=== PATIENT | female | born 1960 | race Caucasian/White ===

== ENCOUNTER → 2016-11-25 | Outpatient (CLI) | payer OTHER ==
--- NOTE | 2016-11-27 09:50 | Diagnostic Imaging Report ---
Bilateral screening mammogram 2D views with tomosynthesis The current study was also evaluated with a Computer Aided Detection (CAD) system. Indication: Screening. No current complaints stated on the questionnaire. COMPARISON: 06/06/15 FINDINGS: The breasts are composed of heterogeneously dense parenchyma which may decrease mammographic sensitivity. There is stable punctate benign-appearing calcifications seen in both breasts. No mass, architectural distortion or suspicious cluster of calcification is identified. Allowing for technique and positional differences, no suspicious change is seen. IMPRESSION: No significant change. ACR BI-RADS Category 2: Benign findings. Result letter will be mailed to the patient. Note: At least 10% of breast cancer is not imaged by mammography. Dictated by: Dictated on workstation # [id number]
== END ==
LOC: RAD 14:33
PROVIDERS: ATTEND Family Medicine
DX: Z12.31 Encounter for screening mammogram for malignant neoplasm of breast (principal)
CPT/HCPCS: 77067

== ENCOUNTER → 2017-05-01 | Outpatient (CLI) | payer OTHER ==
[2017-05-01 07:55] LABS: RED BLOOD COUNT 4.8 10^6/uL (4.35-5.85); RED CELL DISTRIBUTION WIDTH 13.2 % (10.0-14.5); WHITE BLOOD COUNT 9.7 10^3/uL (4.3-11.0)
[2017-05-01 08:15] LABS: ALANINE AMINOTRANSFERASE 25 U/L (0-55); ALBUMIN 4.2 GM/DL (3.2-4.5); ANION GAP 10 MMOL/L (5-14); ASPARTATE AMINO TRANSFERASE 17 U/L (5-34); BILIRUBIN,TOTAL 0.5 MG/DL (0.1-1.0); BLOOD UREA NITROGEN 17 MG/DL (7-18); BUN/CREATININE RATIO 23; CALCIUM 9.5 MG/DL (8.5-10.1); CARBON DIOXIDE 25 MMOL/L (21-32); CHLORIDE 107 MMOL/L (98-107); CHOLESTEROL 183 MG/DL (< 200); CREATININE SERUM 0.73 MG/DL (0.60-1.30); DIRECT LDL 120 MG/DL (1-129); GFR ESTIMATED > 60; GLUCOSE 100 MG/DL (70-105); POTASSIUM 4.1 MMOL/L (3.6-5.0); SODIUM 142 MMOL/L (135-145); TOTAL PROTEIN 7.9 GM/DL (6.4-8.2); TRIGLYCERIDES 154 MG/DL (<150); VLDL CHOLESTEROL 31 MG/DL (5-40)
[2017-05-01 08:35] LABS: THYROID STIMULATING HORMONE 1.66 UIU/ML (0.35-4.94)
== END ==
LOC: LAB 07:40
PROVIDERS: ATTEND Family Medicine
DX: Z00.00 Encounter for general adult medical examination without abnormal findings (principal)
CPT/HCPCS: 36415; 80053; 80061; 84443; 85027

== ENCOUNTER → 2018-04-20 | Outpatient (CLI) | payer OTHER ==
--- NOTE | 2018-04-20 20:20 | Diagnostic Imaging Report ---
INDICATION: Routine screening. Comparison is made with prior mammograms from 11/25/2016 and 06/06/2015. 2-D and 3-D bilateral screening mammography was performed with computer-aided detection (CAD) system. FINDINGS: Both breasts are heterogeneously dense, limiting the sensitivity of mammography. There are punctate benign-appearing calcifications in both breasts. A benign-appearing nodular density in the slightly outer right breast posterior depth appears stable over several years. Similar-appearing nodular density is noted in the posterior depth of the left breast just lateral to the nipple line on the CC view, not definitely seen on prior exams or at least slightly better seen on today's study. This too has fairly benign features, but additional views are recommended. This appears to be inferiorly located on the MLO view, tomographic image 31 of the MLO series. This may represent a small cyst or lymph node. No other abnormality is seen. IMPRESSION: Left breast density. Additional views are recommended for further evaluation. ACR BI-RADS Category 0: Incomplete. (Needs additional imaging evaluation). Result letter will be mailed to the patient. Note: At least 10% of breast cancer is not imaged by mammography. Dictated by: Dictated on workstation # [id number]
== END ==
LOC: RAD 14:22
PROVIDERS: ATTEND Family Medicine
DX: Z12.31 Encounter for screening mammogram for malignant neoplasm of breast (principal); R92.8 Other abnormal and inconclusive findings on diagnostic imaging of breast
CPT/HCPCS: 77067

== ENCOUNTER → 2018-04-22 | Outpatient (CLI) | payer OTHER ==
--- NOTE | 2018-04-22 21:16 | Diagnostic Imaging Report ---
INDICATION: Left breast density. Patient presents for additional views. Correlation is made with prior screening mammogram from 04/20/2018. Unilateral left 2-D and 3-D diagnostic mammography was performed with computer-aided detection (CAD) system. Images included spot compression CC and ML as well as conventional 90-degree lateral view. FINDINGS: There is a persistent slightly nodular density in the far posterior lower-outer left breast approximately 8 cm from the nipple. No other abnormality is seen. No suspicious calcifications are identified. IMPRESSION: Persistent nodular density lower-outer left breast posterior depth. Further evaluation with ultrasound is recommended. ACR BI-RADS Category 0: Incomplete. (Needs additional imaging evaluation). Result letter will be mailed to the patient. Note: At least 10% of breast cancer is not imaged by mammography. Dictated by: Dictated on workstation # [id number]
--- NOTE | 2018-04-22 21:20 | Diagnostic Imaging Report ---
INDICATION: Left breast density. Correlation is made with diagnostic mammogram earlier the same day and screening mammogram from 04/20/2018. FINDINGS: Directed sonographic interrogation of the lower-outer left breast was performed. There is a tiny circumscribed hypoechoic mass at the 03:30 location of the left breast approximately 5 cm from the nipple. This measures 6 mm x 4 mm x 3 mm. There appear to be posterior acoustic enhancement features that are suggestive of a small cyst. This likely accounts for the mammographic density. No other abnormality is seen. IMPRESSION: Findings suggestive of a small cyst at the 03:30 location of the left breast, likely accounting for the mammographic density. Even so, follow-up left mammogram and left breast ultrasound in six months is recommended to confirm stability. ACR BI-RADS Category 3: Probably benign findings. Dictated by: Dictated on workstation # [id number]
== END ==
LOC: RAD 08:07
PROVIDERS: ATTEND Family Medicine
DX: R92.2 Inconclusive mammogram (principal)
CPT/HCPCS: 76642

== ENCOUNTER → 2018-10-20 | Outpatient (CLI) | payer OTHER ==
--- NOTE | 2018-10-20 11:20 | Diagnostic Imaging Report ---
INDICATION: Six-month followup left breast nodule. COMPARISON: 04/20/2018. TECHNIQUE: Unilateral left 2D and 3D diagnostic mammography was performed with CAD. FINDINGS: The small nodular density in the lower outer left breast at posterior depth appears stable. No new mass is seen. No malignant appearing microcalcifications are seen. The left axilla is unremarkable. IMPRESSION: Stable left mammogram. Ultrasound will be performed today as well. ACR BI-RADS Category 0: Incomplete. (Needs additional imaging evaluation). Result letter will be mailed to the patient. Note: At least 10% of breast cancer is not imaged by mammography. Dictated by: Dictated on workstation # [id number]
--- NOTE | 2018-10-20 11:27 | Diagnostic Imaging Report ---
INDICATION: Six-month followup of a left breast cyst. COMPARISON: 04/22/2018. FINDINGS: The previously noted ovoid hypoechoic mass at the 3:30 location of the left breast 5 cm from the nipple is again noted measuring 5 mm x 3 mm x 4 mm compared with 6 mm x 4 mm x 3 mm on the prior exam. No internal vascularity is identified. This is most consistent with a small cyst. IMPRESSION: Stable left breast cyst at the 3:30 location when compared to the exam from 6 months earlier. An additional six-month followup is recommended to show continued stability. ACR BI-RADS Category 3: Probably benign findings. Result letter will be mailed to the patient. Note: At least 10% of breast cancer is not imaged by mammography. Dictated by: Dictated on workstation # [id number]
== END ==
LOC: RAD 08:08
PROVIDERS: ATTEND Family Medicine
DX: N60.02 Solitary cyst of left breast (principal); N63.20 Unspecified lump in the left breast, unspecified quadrant
CPT/HCPCS: 76642

== ENCOUNTER 2018-12-28 09:00 | Outpatient (CLI) | payer OTHER ==
[~2018-12-28] VITALS: Ht 170.2 cm; Wt 103.4 kg
[~2018-12-28 09:00] MED LIST: MULT-178 PO; OMG1KC PO; SIMV10TA PO
== END 2018-12-28 10:28 | disposition home or self-care (01) ==
LOC: PREOP 09:00
PROVIDERS: ATTEND Surgery
DX: Z01.818 Encounter for other preprocedural examination (principal)

== ENCOUNTER 2018-12-29 08:49 | Day surgery (SDC) | payer OTHER ==
[~2018-12-29] VITALS: Ht 170.2 cm; Wt 103.4 kg
[2018-12-29] VITALS (19 sets, daily range): BP systolic 48–157; BP diastolic 55–86
[2018-12-29] MEDS ORDERED: NS IV 500 ML 500 ML ONE (09:19)
[2018-12-29] MEDS ORDERED: NS IV 500 ML 500 ML IV PRN (09:39)
[2018-12-29] MEDS ORDERED: HURRICAINE EXT TUBE (BENZOCAINE) XX PRN (09:45)
[2018-12-29] MEDS ORDERED: MIDAZOLAM 2 MG/2 ML (VERSED) VIAL IVP ONE (09:45)
[2018-12-29] MEDS ORDERED: LIDOCAINE JELLY 2% 6 ML SYRINGE MM PRN (09:45)
[2018-12-29] MEDS ORDERED: fentaNYL INJECTION 100 MCG/2 ML AMP ONE ×2 (09:59)
[2018-12-29] MEDS ORDERED: LIDOCAINE JELLY 2% 6 ML SYRINGE ONE (09:59)
[2018-12-29] MEDS ORDERED: MIDAZOLAM 2 MG/2 ML (VERSED) VIAL ONE ×5 (09:59→10:32)
[2018-12-29] MEDS ORDERED: HURRICAINE EXT TUBE (BENZOCAINE) ONE (10:09)
--- NOTE | 2018-12-29 10:14 | Conscious Sedation/ASA ---
Conscious Sedation Pre-Proced Time 09:30 ASA Score 2 For ASA 3 and 4: Consider anesthesia and medical clearance. Also, for patients with a history of failed moderate sedation consider anesthesia. Airway Lungs Heart ASA score ASA 1: a normal healthy patient ASA 2: a patient with a mild systemic disease (mid diabetes, controlled hypertension, obesity ASA 3: a patient with a severe systemic disease that limits activity (angina, COPD, prior Myocardial infarction) ASA 4: a patient with an incapacitating disease that is a constant threat to life (CHF, renal failure) ASA 5: a moribund patient not expected to survive 24 hrs. (ruptured aneurysm) ASA 6: a declared brain- patient whose organs are being harvested. For emergent operations, add the letter E after the classification Mallampati Classification Grade 2 Sedation Plan Analgesia, Amnesia, Plan communicated to team members, Discussed options with patient/fam, Discussed risks with patient/fam The patient is an appropriate candidate to undergo the planned procedure, sedation, and anesthesia. The patient immediately re-assessed prior to indication. HERMAN CHICAS MD Dec 29, 2018 10:14
[2018-12-29] MEDS ORDERED: ONDANSETRON 4 MG/2 ML (SDV) Z0FRAN IVP PRN (10:15)
[2018-12-29] MEDS ORDERED: ACETAMINOPHEN 325 MG TABLET PO PRN (10:15)
[2018-12-29] MEDS ORDERED: HYDROcodone/APAP 5 MG/325 MG (LORTAB) TAB PO PRN (10:15)
[2018-12-29] MEDS ORDERED: morphine INJ 10 MG/ML 1ML (SYR OR VIAL) IVP PRN ×2 (10:15)
--- NOTE | 2018-12-29 10:15 | Progress Note-Pre Operative ---
Pre-Operative Progress Note H&P Reviewed The H&P was reviewed, patient examined and no changes noted. Date Seen by Provider: Dec 29, 2018 Time Seen by Provider: :30 Date H&P Reviewed: Dec 29, 2018 Time H&P Reviewed: :30 Pre-Operative Diagnosis: GERD, screening o HERMAN CHICAS MD Dec 29, 2018 10:15
--- NOTE | 2018-12-29 10:16 | Discharge Inst-Surgical ---
D/C Lap Instructions-JUAN FRANCISCO Follow Up Activity as tolerated High Fiber Diet 25g or more per day Avoid Alcohol, Caffeine, Spicy [place] and Acid foods. Drink 64 fluid oz or more of fluids per day. Symptoms to Report: Fever over 101 degree F, Nausea/Vomiting If any problems/questions: Contact your physician or go to Emergency Room HERMAN CHICAS MD Dec 29, 2018 10:16
--- NOTE | 2018-12-29 11:07 | Progress Note-Post Operative ---
Post-Operative Progess Note Surgeon (s)/Nicker (s) Surgeon HERMAN CHICAS MD Nicker: none Pre-Operative Diagnosis GERD, screening colo Post-Operative Diagnosis reflux esophagitis(stage 2), small HH(1cm), mild gastritis. mild chronic stage 1 ext and int hemorrhoids, moderate sigmoid diverticulosis. Procedure & Operative Findings Date of Procedure 12/29/18 Procedure Performed/Findings EGD with bx. Colonoscopy. Anesthesia Type cs Estimated Blood Loss Estimated blood loss (mL): minimal Specimens/Packing Specimens Removed ge jxn, antrum HERMAN CHICAS MD Dec 29, 2018 11:07
[2018-12-29] MEDS: fentaNYL INJECTION 100 MCG/2 ML AMP IVP ONE ×2 (11:08→11:30)
[2018-12-29] MEDS ORDERED: fentaNYL INJECTION 100 MCG/2 ML AMP IVP ONE (12:00)
--- NOTE | 2018-12-29 15:31 | OPERATIVE REPORT ---
DATE OF SERVICE: 12/29/2018 ATTENDING PRIMARY CARE PHYSICIAN: Kaveh Stacy DO. PREOPERATIVE DIAGNOSES: Gastroesophageal reflux disease, screening colonoscopy. POSTOPERATIVE DIAGNOSES: Reflux esophagitis stage II, small hiatal hernia 1 cm in size, mild gastritis, mild chronic stage I external and internal hemorrhoids, moderate sigmoid diverticulosis. PROCEDURE: Esophagogastroduodenoscopy with biopsy, colonoscopy. SURGEON: Herman Chicas MD ANESTHESIA: Conscious sedation. ESTIMATED BLOOD LOSS: Minimal. FINDINGS: Reflux esophagitis stage II, small hiatal hernia 1 cm in size, mild gastritis, mild chronic stage I external and internal hemorrhoids, moderate sigmoid diverticulosis. DISPOSITION: The patient tolerated the procedure well. INDICATIONS: The patient is a 58-year-old female referred over to us for screening colonoscopy. She did do the Cologuard, which was positive. She has not had a colonoscopy up to this point in her life. She states that she is otherwise doing well, does not report any major issues with diarrhea nor constipation as well as no red blood per rectum nor any dark tarry stools. She also does not have any family history of colon cancer. She does report that she has had some reflux in the past, which has slightly worsened over time as well. She does take Prilosec 20 mg daily on p.r.n. basis. DESCRIPTION OF PROCEDURE: The patient was brought to the endoscopy suite, laid in left lateral decubitus position. After adequate IV pain and stated medications and conscious sedation, anesthesia, the mouthpiece was applied. The endoscope was placed in the mouth, visualizing the pharynx and hypopharyngeal region. Vocal cords, epiglottis and vallecula identified and appeared to be normal. Endoscope was then gently intubated into the esophageal opening and esophagus insufflated. The endoscope was then intubated into the esophagus and the endoscope advanced to the first, second and third portions of the esophagus at the level of the GE junction. A reflux esophagitis stage II identified. There were no ulcers or strictures identified in this region and a biopsy was taken with forceps with visualization of good hemostasis. The endoscope was then advanced in the stomach and endoscope retroflexed, visualizing a small hiatal hernia 1 cm in size. There was mild gastritis. No formal ulcerations, polyps or any neoplasms. A biopsy was taken of the antrum to rule out H. pylori with visualization of good hemostasis. The endoscope was then advanced to the pylorus and the first and second portion of the duodenum, which appeared normal with no distal obstructions. The endoscope was slowly withdrawn while taking a second look and suctioning residual air with no additional findings. Under the same anesthesia, we then proceeded with the colonoscopy portion of procedure. Mild chronic stage I external and internal hemorrhoids were identified, which were not actively edematous nor inflamed and no bleeding. Normal sphincter tone was felt and there were no palpable masses. The endoscope was then intubated to the anus and rectum gently insufflated. The endoscope was then advanced to the valves of [place] of rectum with no polyps or any neoplasms identified. Through the sigmoid colon, a moderate sigmoid diverticulosis was identified. There were no mucosal inflammatory changes to indicate any active diverticulitis. The endoscope was then advanced through the remainder of the descending, transverse and ascending colon to the cecum. These segments were normal. There were no polyps or any neoplasms identified. The endoscope was then slowly withdrawn while taking a second look and suctioning of residual air with no additional findings. The patient tolerated the procedure well. We will recommend the necessary lifestyle and diet accommodation including small and more frequent meals, avoidance of eating at night as well as head elevation while lying supine. She also needs to avoid caffeinated beverages, spicy, greasy and acidic foods. We will also recommend a high fiber diet with at least 25 grams of fiber daily as well as significant amounts of water to promote soft stools on a daily basis and to prevent any episodes of constipation. No polyps were identified and she does not have a family history of colon cancer and she does not need another colonoscopy for another 10 years; however, sooner if she becomes symptomatic. Job ID: [id number] DocumentID: [id number] Dictated Date: 12/29/2018 11:03:13 [employer] Date: 12/29/2018 15:29:20 Dictated By: HERMAN CHICAS MD [facility]
== END 2018-12-29 12:15 | disposition home or self-care (01) ==
LOC: ENDO 08:49
PROVIDERS: ATTEND Surgery
DX: Z12.11 Encounter for screening for malignant neoplasm of colon (principal); K21.0 Gastro-esophageal reflux disease with esophagitis; K29.70 Gastritis, unspecified, without bleeding; K22.70 Barrett's esophagus without dysplasia; K44.9 Diaphragmatic hernia without obstruction or gangrene; K64.0 First degree hemorrhoids; K64.8 Other hemorrhoids; K57.30 Diverticulosis of large intestine without perforation or abscess without bleeding; E78.00 Pure hypercholesterolemia, unspecified; M19.90 Unspecified osteoarthritis, unspecified site; Z90.89 Acquired absence of other organs; Z98.41 Cataract extraction status, right eye; Z98.42 Cataract extraction status, left eye; Z79.899 Other long term (current) drug therapy; Z82.49 Family history of ischemic heart disease and other diseases of the circulatory system
CPT/HCPCS: 88305

== ENCOUNTER → 2019-04-28 | Outpatient (CLI) | payer OTHER ==
--- NOTE | 2019-04-28 18:53 | Diagnostic Imaging Report ---
INDICATION: Abnormal mammogram. EXAMINATION: Diagnostic left mammogram, limited, with CAD. The current study was also evaluated with a Computer Aided Detection (CAD) system. FINDINGS: The previous left breast ultrasound exam performed on 10/20/2018 suggested a small, 5 mm, cyst in the 3:30 position of the left breast, roughly 5 cm from the nipple. That finding cannot be identified on this exam. The diagnostic mammogram performed earlier today noted a small area of increased density in the midportion of the retroareolar region of the right breast. On this exam, there is now a 3 x 4 mm avascular hypoechoic area in this region. I suspect that this is a small cyst. I am not certain this corresponds to the density seen on the mammogram. The mammographic finding is most likely due to superimposition of the fibroglandular tissue and there is no solid mass evident on this exam to suggest malignancy. Even so, it may prove worthwhile to have a short-term (6 month) follow-up mammogram and ultrasound exam of the left breast for continued evaluation. IMPRESSION: There is no evidence of malignancy. Recommendations as above. ACR BI-RADS Category 3: Probably benign findings. Result letter will be mailed to the patient. Note: At least 10% of breast cancer is not imaged by mammography. Dictated by: Dictated on workstation # [id number]
--- NOTE | 2019-04-29 07:17 | Diagnostic Imaging Report ---
Unilateral diagnostic left mammogram. Indication: Followup exam The previous mammogram of 10/20/2018 noted a small nodular density in the lower outer aspect of the left breast. The ultrasound exam indicated that there was a small cyst in this region. On this exam the density in the lateral aspect of the left breast seen previously is not as conspicuous. There is a vague area of slightly increased density in the left retroareolar region on the CC view. There is no corresponding otherwise seen on the MLO view and this finding is not as conspicuous on the compression view in the CC projection or on the roll views. I suspect that this is secondary to superimposition but I would recommend that this area be further evaluated by ultrasound. The right breast is unchanged. The fibroglandular tissue in both breasts is heterogeneously dense and this does limit the sensitivity of this exam. Impression: 1. The small density in the lateral aspect of the left breast seen previously is no longer evident. However there is a new area of slight increased density in the retroareolar region of the left breast. This finding is most likely due to fibroglandular tissue but ultrasound would be recommended for further study. 2. There is no evidence for malignancy involving the right breast. ACR BI-RADS Category 0: Incomplete. (Needs additional imaging evaluation). Result letter will be mailed to the patient. Note: At least 10% of breast cancer is not imaged by mammography. Dictated by: Dictated on workstation # [id number]
== END ==
LOC: RAD 12:34
PROVIDERS: ATTEND Family Medicine
DX: R92.8 Other abnormal and inconclusive findings on diagnostic imaging of breast (principal)
CPT/HCPCS: 76642; 77066

== ENCOUNTER → 2019-04-29 | Outpatient (CLI) | payer OTHER ==
[2019-04-29 07:28] LABS: BASOPHILS # (AUTO) 0.1 10^3/uL (0.0-0.1); BASOPHILS % (AUTO) 1 % (0-10); EOSINOPHILS # (AUTO) 0.3 10^3/uL (0.0-0.3); EOSINOPHILS % (AUTO) 3 % (0-10); HEMATOCRIT 41 % (35-52); HEMOGLOBIN 13.7 G/DL (11.5-16.0); LYMPHOCYTES # (AUTO) 3.3 X 10^3 (1.0-4.0); LYMPHOCYTES % (AUTO) 36 % (12-44); MEAN CORPUSCULAR HEMOGLOBIN 29 PG (25-34); MEAN CORPUSCULAR HGB CONC 33 G/DL (32-36); MEAN CORPUSCULAR VOLUME 87 FL (80-99); MEAN PLATELET VOLUME 10.9 FL (7.4-10.4); MONOCYTES # (AUTO) 0.5 X 10^3 (0.0-1.0); MONOCYTES % (AUTO) 6 % (0-12); NEUTROPHILS # (AUTO) 5.1 X 10^3 (1.8-7.8); NEUTROPHILS % (AUTO) 55 % (42-75); PLATELET COUNT 280 10^3/uL (130-400); RED CELL DISTRIBUTION WIDTH 13.3 % (10.0-14.5); WHITE BLOOD COUNT 9.4 10^3/uL (4.3-11.0)
[2019-04-29 07:39] LABS: BILIRUBIN,URINE NEGATIVE (NEGATIVE); CLARITY,URINE CLEAR; COLOR,URINE YELLOW; GLUCOSE, URINE (UA) NEGATIVE (NEGATIVE); KETONES,URINE NEGATIVE (NEGATIVE); LEUKOCYTE ESTERASE ,URINE NEGATIVE (NEGATIVE); NITRITE,URINE NEGATIVE (NEGATIVE); PROTEIN,URINE NEGATIVE (NEGATIVE)
[2019-04-29 07:41] LABS: BACTERIA,URINE NEGATIVE /HPF; RBC,URINE RARE /HPF; SQUAMOUS EPITHELIAL CELL,UR 0-2 /HPF; WBC,URINE 0-2 /HPF
[2019-04-29 07:51] LABS: ALANINE AMINOTRANSFERASE 29 U/L (0-55); ALBUMIN 4.2 GM/DL (3.2-4.5); ALKALINE PHOSPHATASE 104 U/L (40-136); BILIRUBIN,TOTAL 0.4 MG/DL (0.1-1.0); BUN/CREATININE RATIO 18; CALCIUM 8.9 MG/DL (8.5-10.1); CARBON DIOXIDE 20 MMOL/L (21-32); CHLORIDE 109 MMOL/L (98-107); CHOLESTEROL 180 MG/DL (< 200); CREATININE SERUM 0.78 MG/DL (0.60-1.30); GFR ESTIMATED > 60; GLUCOSE 102 MG/DL (70-105); HDL CHOLESTEROL 43 MG/DL (40-60); POTASSIUM 3.9 MMOL/L (3.6-5.0); SODIUM 141 MMOL/L (135-145); TOTAL PROTEIN 7.6 GM/DL (6.4-8.2); TRIGLYCERIDES 116 MG/DL (<150); VLDL CHOLESTEROL 23 MG/DL (5-40)
== END ==
LOC: LAB 07:13
PROVIDERS: ATTEND Family Medicine
DX: Z01.812 Encounter for preprocedural laboratory examination (principal)
CPT/HCPCS: 36415; 80053; 80061; 81000; 84443; 85025

== ENCOUNTER → 2019-11-02 | Outpatient (CLI) | payer OTHER ==
--- NOTE | 2019-11-02 11:25 | Diagnostic Imaging Report ---
INDICATION: Six-month follow-up of left breast density. Correlation is made with prior mammogram 04/28/2019 and 10/20/2018. 2-D and 3-D unilateral left diagnostic mammography was performed with CAD. Density on the CC view retroareolar region on prior study is much less prominent on today's study and likely represented superimposed tissue. No masses identified. No malignant-appearing microcatheter lesions are seen. Left axilla is unremarkable. IMPRESSION: BI-RADS 0 No mammographic features suspicious for malignancy are identified. Even so, follow-up left breast ultrasound to further evaluate previously noted hypoechoic nodules is recommended and will be performed today. ACR BI-RADS Category 0: Incomplete. (Needs additional imaging evaluation). Result letter will be mailed to the patient. Note: At least 10% of breast cancer is not imaged by mammography. Dictated by: Dictated on workstation # [id number]
--- NOTE | 2019-11-03 08:32 | Diagnostic Imaging Report ---
Indication: Six-month follow-up of left breast cyst. Correlation is made with prior breast ultrasound from 04/28/2019 and diagnostic mammogram earlier same day. Tiny 3 mm cyst retroareolar left breast is stable. No new mass is detected. IMPRESSION: BI-RADS Category 2 Tiny cyst retroareolar left breast. Patient may return to routine annual screening mammography. ACR BI-RADS Category 2: Benign findings. Result letter will be mailed to the patient. Note: At least 10% of breast cancer is not imaged by mammography. Dictated by: Dictated on workstation # [id number]
== END ==
LOC: RAD 08:33
PROVIDERS: ATTEND Family Medicine
DX: Z09 Encounter for follow-up examination after completed treatment for conditions other than malignant neoplasm (principal); N60.02 Solitary cyst of left breast
CPT/HCPCS: 76642; 77065; G0279

== ENCOUNTER 2020-03-03 12:09 | Emergency (ER) | payer OTHER ==
[~2020-03-03] VITALS: Ht 170.1 cm; Wt 96.3 kg
[2020-03-03] MEDS ORDERED: LIDOCAINE 1% INJ 20 ML 20 ML VIAL ONE (12:14)
[2020-03-03] MEDS ORDERED: LIDOCAINE 1% INJ 20 ML 20 ML VIAL INJ ONE (12:15)
--- NOTE | 2020-03-03 12:35 | ED Upper Extremity ---
General Chief Complaint: Laceration Stated Complaint: R FIRST FINGER LAC Nursing Triage Note: AMB TO ROOM WITH LACERATION R 2ND FINGER WAS WASHING A GLASS AND IT BROKE . Nursing Sepsis Screen: No Definite Risk Source: patient Exam Limitations: no limitations History of Present Illness Date Seen by Provider: Mar 03, 2020 Time Seen by Provider: 12:10 Initial Comments Patient resents ER by private conveyance with chief complaint that just prior to arrival she was washing dishes and broke a glass which lacerated her left hand on the second knuckle. She held pressure for over 20 minutes and was unable to get it to stop bleeding so she return to the ER. She typically takes NSAIDs daily but does not take any blood thinners. She is right-handed. She has full range of motion of her hand. No tetanus vaccination the last 5 years. Allergies and Home Medications Allergies Coded Allergies: No Known Drug Allergies (Verified , 12/29/18) Home Medications Multivitamin 1 Each Tablet, 1 EACH PO DAILY, (Reported) [place] 3 Polyunsat Fatty Acids 1,000 Mg Cap, 1,000 MG PO DAILY, (Reported) Simvastatin 10 Mg Tablet, 10 MG PO HS, (Reported) Patient Home Medication List Home Medication List Reviewed: Yes Review of Systems Constitutional: No chills, No diaphoresis EENTM: No ear discharge, No ear pain Respiratory: No cough, No short of breath Cardiovascular: No chest pain, No palpitations Gastrointestinal: No abdominal pain, No constipation Skin: see HPI Past Zhnjhxy-Nwavqv-Fslgid Hx Patient Social History Alcohol Use: Denies Use Recreational Drug Use: No Smoking Status: Never a Smoker 2nd Hand Smoke Exposure: No Recent Foreign Travel: No Contact w/Someone Who Travel: No Recent Infectious Disease Expo: No Recent Hopitalizations: No Immunizations Up To Date Date of Influenza Vaccine: Feb 22, 2018 Seasonal Allergies Seasonal Allergies: No Past Medical History Surgeries: Yes (R EYE X4, L EYE) Gallbladder Respiratory: No Cardiac: No (TAKES ZOCOR PREVENTATIVE) Neurological: No Sexually Transmitted Disease: No HIV/AIDS: No Gastrointestinal: Yes Gastroesophageal Reflux Musculoskeletal: Yes Arthritis, Chronic Back Pain Endocrine: No HEENT: No (GLASSES) Loss of Vision: Denies Hearing Impairment: Denies Cancer: No Psychosocial: No Integumentary: No Blood Disorders: No Adverse Reaction/Blood Tranf: No Physical Exam Vital Signs Vital Signs - First Documented 03/03/20 12:10 Temp 35.8 Pulse 79 Resp 18 B/P (MAP) 168/86 (113) Pulse Ox 100 O2 Delivery Room Air Capillary Refill : Less Than 3 Seconds Height, Weight, BMI Height: 5'7.00" Weight: 228lbs. 0.0oz. 103.926974pl; 33.00 BMI Method: General Appearance: WD/WN, no apparent distress HEENT: PERRL/EOMI, pharynx normal Cardiovascular: normal peripheral pulses, regular rate, rhythm Respiratory: no respiratory distress, no accessory muscle use Wrist: Yes normal inspection, Yes non-tender Hand: Right, Left Neurologic/Tendon: normal sensation, normal motor functions, no evidence tendon injury Neurologic/Psychiatric: alert, normal mood/affect, oriented x 3 Skin: other (2.5 cm curvilinear laceration into the subcutaneous tissue.) Procedures/Interventions Wound Location: Upper Extremities Other Wound Location Right hand knuckle of the second digit. Dorsal side. Wound Length (cm): 2.5 Wound's Depth, Shape: linear (curvilinear), sub Q Wound Explored: clean Irrigated w/ Saline (ccs): 100 Betadine Prep?: Yes (chlorhexidine and sterile saline) Anesthesia: 1% Lidocaine Volume Anesthetic (ccs): 2 Wound Debrided: minimal Suture: Prolene Suture Size: 4-0 Number of Sutures: 3 Sterile Dressing Applied?: Yes Progress/Results/Core Measures Results/Orders My Orders Orders - ADELITA MARIA Lidocaine 1% Inj 20 Ml (Xylocaine 1% Inj (03/03/20 12:15) Lidocaine 1% Inj 20 Ml (Xylocaine 1% Inj (03/03/20 12:14) Medications Given in ED Current Medications Medications Dose Ordered Sig/Mallory Route Start Time Stop Time Status Last Admin Dose Admin Lidocaine HCl 20 ml ONCE ONCE INJ 03/03/20 12:15 03/03/20 12:16 DC 03/03/20 12:17 20 ML Lidocaine HCl 20 ml STK-MED ONCE .ROUTE 03/03/20 12:14 03/03/20 12:15 DC 03/03/20 12:17 20 ML Vital Signs/I&O 03/03/20 12:10 Temp 35.8 Pulse 79 Resp 18 B/P (MAP) 168/86 (113) Pulse Ox 100 O2 Delivery Room Air Blood Pressure Mean: 113 Departure Impression Primary Impression: Laceration of hand Qualified Codes: S61.411A - Laceration without foreign body of right hand, i nitial encounter Disposition: 01 HOME, SELF-CARE Condition: Improved Departure-Patient Inst. Decision time for Depature: 12:41 Referrals: MYA LANDEROS DO (PCP/Family) Primary Care Physician Patient Instructions: Laceration Repair With Stitches (DC) Add. Discharge Instructions: Keep the wound clean with regular soap and water. Change the dressing at least daily. Change the dressing more often if it becomes soiled. For the first 2 days rest your right hand and use it as little as possible to reduce swelling, pain and bleeding. Return to the ER in approximately 10 days to have the sutures removed. Keflex twice a day for the first 3 days to prevent infection in your hand. All discharge instructions reviewed with patient and/or family. Voiced understanding. Scripts Cephalexin (Keflex) 500 Mg Capsule 500 MG PO BID for 3 Days, #6 CAP 0 Refills Prov: ADELITA MARIA 03/03/20 Work/School Note: Work Release Form Date Seen in the Emergency Department: Mar 03, 2020 Return to Work: Mar 05, 2020 Restrictions: No Restrictions ADELITA MARIA Mar 03, 2020 12:35
[2020-03-03] MEDS ORDERED: CEPH-507 PO (12:43)
[2020-03-03] MEDS ORDERED: TETANUS,DIPTH,PERTUSS P/F (BOOSTRIX) 0.5 ML VIAL IM ONE (12:45)
[2020-03-03 12:51] VITALS: BP 168/86
== END 2020-03-03 12:55 | disposition home or self-care (01) ==
LOC: EDUNIT# 12:09 → ER 12:10
DX: S61.412A Laceration without foreign body of left hand, initial encounter (principal); W25.XXXA Contact with sharp glass, initial encounter
CPT/HCPCS: 12001; 90715

== ENCOUNTER → 2020-04-30 | Outpatient (CLI) | payer OTHER ==
[~2020-04-30] MED LIST changes: +CEPH-507 PO
[2020-04-30 08:03] LABS: BASOPHILS # (AUTO) 0.1 10^3/uL (0.0-0.1); BASOPHILS % (AUTO) 1 % (0-10); EOSINOPHILS # (AUTO) 0.3 10^3/uL (0.0-0.3); EOSINOPHILS % (AUTO) 3 % (0-10); HEMATOCRIT 42 % (35-52); HEMOGLOBIN 13.6 g/dL (11.5-16.0); LYMPHOCYTES # (AUTO) 3.2 10^3/uL (1.0-4.0); LYMPHOCYTES % (AUTO) 40 % (12-44); MEAN CORPUSCULAR HEMOGLOBIN 29 pg (25-34); MEAN CORPUSCULAR HGB CONC 32 g/dL (32-36); MEAN CORPUSCULAR VOLUME 90 fL (80-99); MONOCYTES # (AUTO) 0.4 10^3/uL (0.0-1.0); MONOCYTES % (AUTO) 5 % (0-12); NEUTROPHILS % (AUTO) 51 % (42-75); PLATELET COUNT 265 10^3/uL (130-400); WHITE BLOOD COUNT 7.9 10^3/uL (4.3-11.0)
[2020-04-30 08:04] LABS: BILIRUBIN,URINE NEGATIVE (NEGATIVE); CLARITY,URINE CLEAR; COLOR,URINE YELLOW; GLUCOSE, URINE (UA) NEGATIVE (NEGATIVE); KETONES,URINE NEGATIVE (NEGATIVE); LEUKOCYTE ESTERASE ,URINE NEGATIVE (NEGATIVE); NITRITE,URINE NEGATIVE (NEGATIVE); PROTEIN,URINE NEGATIVE (NEGATIVE)
[2020-04-30 08:14] LABS: BACTERIA,URINE NEGATIVE /HPF; RBC,URINE 0-2 /HPF; SQUAMOUS EPITHELIAL CELL,UR RARE /HPF
[2020-04-30 08:25] LABS: ALANINE AMINOTRANSFERASE 18 U/L (0-55); ALBUMIN 4.2 GM/DL (3.2-4.5); ALKALINE PHOSPHATASE 104 U/L (40-136); BILIRUBIN,TOTAL 0.5 MG/DL (0.1-1.0); BUN/CREATININE RATIO 16; CALCIUM 9.1 MG/DL (8.5-10.1); CARBON DIOXIDE 22 MMOL/L (21-32); CHLORIDE 108 MMOL/L (98-107); CHOLESTEROL 159 MG/DL (< 200); CREATININE SERUM 0.76 MG/DL (0.60-1.30); GFR ESTIMATED > 60; GLUCOSE 105 MG/DL (70-105); HDL CHOLESTEROL 47 MG/DL (40-60); POTASSIUM 3.9 MMOL/L (3.6-5.0); SODIUM 142 MMOL/L (135-145); TOTAL PROTEIN 7.7 GM/DL (6.4-8.2); TRIGLYCERIDES 123 MG/DL (<150); VLDL CHOLESTEROL 25 MG/DL (5-40)
== END ==
LOC: LAB 07:45
PROVIDERS: ATTEND Family Medicine
DX: Z01.89 Encounter for other specified special examinations (principal)
CPT/HCPCS: 36415; 80053; 80061; 81000; 84443; 85025

== ENCOUNTER → 2020-08-23 | Outpatient (CLI) | payer OTHER ==
--- NOTE | 2020-08-23 13:12 | Diagnostic Imaging Report ---
INDICATION: Routine screening. COMPARISON is made with prior mammograms from 04/28/2019 and 11/25/2016. 2-D and 3-D bilateral screening mammography was performed with CAD. Both breasts are heterogeneously dense, limiting the sensitivity of mammography. The parenchymal pattern is stable. There are benign calcifications in both breasts. No mass or malignant appearing microcalcifications are seen. Axillae are unremarkable. IMPRESSION: BI-RADS Category 2. No mammographic features suspicious for malignancy are identified. ACR BI-RADS Category 2: Benign findings. Result letter will be mailed to the patient. Note: At least 10% of breast cancer is not imaged by mammography. Dictated by: Dictated on workstation # [id number]
== END ==
LOC: RAD 10:30
PROVIDERS: ATTEND Family Medicine
DX: Z12.31 Encounter for screening mammogram for malignant neoplasm of breast (principal)
CPT/HCPCS: 77063; 77067

== ENCOUNTER → 2022-01-28 | Outpatient (CLI) | payer OTHER ==
[~2022-01-28] MED LIST changes: +SIMV-332 PO; -SIMV10TA PO
--- NOTE | 2022-01-28 14:25 | Diagnostic Imaging Report ---
Indication: Routine screening. Comparison is made with prior mammogram from 08/23/2020 and 04/28/2019. 2-D and 3-D bilateral screening mammography was performed with CAD. CAD is utilized. The current study was also evaluated with a Computer Aided Detection (CAD) system. Both breasts remain heterogeneously dense, limiting the sensitivity of mammography. There are scattered benign-appearing calcifications. The parenchymal pattern is stable. No spiculated mass or malignant-appearing microcalcifications are seen. Axillae are unremarkable. IMPRESSION: BI-RADS Category 2 No mammographic features suspicious for malignancy are identified. ACR BI-RADS Category 2: Benign findings. Result letter will be mailed to the patient. Note: At least 10% of breast cancer is not imaged by mammography. Dictated by: Dictated on workstation # [id number]
== END ==
LOC: RAD 10:46
PROVIDERS: ATTEND Family Medicine
DX: Z12.31 Encounter for screening mammogram for malignant neoplasm of breast (principal)
CPT/HCPCS: 77063; 77067

== ENCOUNTER 2022-01-31 11:41 | Outpatient (CLI) | payer OTHER ==
[~2022-01-31] VITALS: Ht 170.2 cm; Wt 101.6 kg
[2022-01-31] MEDS ORDERED: MULT-974 PO (13:37)
== END 2022-01-31 13:42 | disposition home or self-care (01) ==
LOC: PREOP 11:41
PROVIDERS: ATTEND Surgery
DX: Z01.818 Encounter for other preprocedural examination (principal)

== ENCOUNTER 2022-02-07 10:50 | Day surgery (SDC) | payer OTHER ==
[~2022-02-07] VITALS: Ht 170 cm; Wt 101.6 kg
[~2022-02-07 10:50] MED LIST changes: +MULT-974 PO
[2022-02-07] MEDS ORDERED: LACTATED RINGERS 1,000 ML IV STA (10:55)
[2022-02-07] MEDS ORDERED: LIDOCAINE JELLY 2% 6 ML SYRINGE MM PRN (11:00)
[2022-02-07] MEDS ORDERED: HURRICAINE EXT TUBE (BENZOCAINE) XX PRN (11:00)
[2022-02-07 11:14] VITALS: BP 135/77
[2022-02-07] MEDS ORDERED: MIDAZOLAM 2 MG/2 ML (VERSED) VIAL ONE (12:00)
[2022-02-07] MEDS ORDERED: proPOfol 200 MG/20 ML (DIPRIVAN) VIAL IV ONE (12:01)
--- NOTE | 2022-02-07 12:02 | Progress Note-Pre Operative ---
Pre-Operative Progress Note Date of Available H&P: Feb 07, 2022 Date H&P Reviewed: Feb 07, 2022 Time H&P Reviewed: 11:30 History & Physical: No changes noted Pre-Operative Diagnosis: hx Barretts esophagus with low grade dysplasia HERMAN CHICAS MD Feb 07, 2022 12:02
[2022-02-07] MEDS ORDERED: PROPOFOL INJECTION 50 ML IV ONE (12:04)
--- NOTE | 2022-02-07 12:04 | Discharge Inst-Surgical ---
D/C Lap Instructions-JUAN FRANCISCO Follow Up Activity as tolerated High Fiber Diet 25g or more per day Avoid Alcohol, Caffeine, Spicy Ball Ground and Acid foods. Drink 64 fluid oz or more of fluids per day. Symptoms to Report: Fever over 101 degree F, Nausea/Vomiting If any problems/questions: Contact your physician or go to Emergency Room HERMAN CHICAS MD Feb 07, 2022 12:04
[2022-02-07] MEDS ORDERED: HURRICAINE EXT TUBE (BENZOCAINE) ONE (12:10)
[2022-02-07] MEDS ORDERED: LACTATED RINGERS 1,000 ML IV ONE (12:10)
[2022-02-07] MEDS ORDERED: LIDOCAINE JELLY 2% 6 ML SYRINGE ONE (12:11)
[2022-02-07] MEDS ORDERED: ONDANSETRON 4 MG (ZOFRAN) ORAL DISSOLVE TAB PO PRN (12:15)
[2022-02-07] MEDS ORDERED: ONDANSETRON 4 MG/2 ML (SDV) Z0FRAN IVP PRN (12:15)
[2022-02-07 12:30] VITALS: BP 128/72
[2022-02-07 12:35] VITALS: BP 115/67
[2022-02-07 12:40] VITALS: BP 109/64
[2022-02-07] MEDS ORDERED: PANT40TA2 PO (12:44)
--- NOTE | 2022-02-07 12:48 | Progress Note-Post Operative ---
Post-Operative Progess Note Surgeon (s)/Tool And Die Repair (s) Surgeon HERMAN CHICAS MD Tool And Die Repair: none Pre-Operative Diagnosis hx Barretts esophagus with low grade dysplasia Post-Operative Diagnosis reflux esophagitis (grade B-C) with clinical Baxter's, moderate HH(3cm), mild gastritis. Procedure & Operative Findings Date of Procedure 02/07/22 Procedure Performed/Findings EGD with bx Anesthesia Type mac Estimated Blood Loss Estimated blood loss (mL): minimal Specimens/Packing Specimens Removed ge jxn, antrum HERMAN CHICAS MD Feb 07, 2022 12:48
[2022-02-07 13:05] VITALS: BP 109/64
--- NOTE | 2022-02-07 22:07 | OPERATIVE REPORT ---
DATE OF SERVICE: 02/07/2022 ATTENDING PRIMARY CARE PHYSICIAN: Dr. Kaveh Stacy. PREOPERATIVE DIAGNOSES: History of Baxter's esophagus and low-grade dysplasia. POSTOPERATIVE DIAGNOSES: Reflux esophagitis, Lamoure grade between grade B and C, moderate size hiatal hernia approximately 3 cm in size, mild gastritis. PROCEDURE: EGD with biopsy. SURGEON: Herman Chicas MD. ANESTHESIA: Monitored anesthesia care. ESTIMATED BLOOD LOSS: Minimal. FINDINGS: Reflux esophagitis, Lamoure grade between grade B and C, moderate size hiatal hernia approximately 3 cm in size, mild gastritis. DISPOSITION: The patient tolerated the procedure well. INDICATIONS: The patient is a 61-year-old female known to us. She has had issues with reflux for many years. Her last EGD was in December 2017 and biopsy did show Bxater's esophagus, as well as a low-grade dysplasia. She also underwent a screening colonoscopy at that time, which was normal. She does not report any major issues with gastroesophageal reflux symptoms and is currently on Protonix. DESCRIPTION OF PROCEDURE: The patient was brought to the endoscopy suite, laid in left lateral decubitus position. After adequate IV pain and sedative medications and monitored anesthesia care, the mouthpiece was applied. The endoscope was placed in the mouth, visualizing the pharynx and hypopharyngeal region. Vocal cords, epiglottis and vallecula identified and appeared to be normal. Endoscope was then gently intubated into the esophageal opening and esophagus insufflated. The endoscope was then advanced through the first, second and third portions of esophagus at the level of the GE junction, a reflux esophagitis between Lamoure grade B and C identified. The GE junction was also more cephalad likely consistent with a clinical Baxter's esophagus. Multiple biopsies were taken with forceps with visualization of good hemostasis. The endoscope was then advanced in the stomach and endoscope retroflexed, visualizing a moderate size hiatal hernia approximately 3 cm in size. There was a mild gastritis. No formal ulcerations, polyps, or any neoplasms. A biopsy was taken of the antrum to rule out H. pylori with visualization of good hemostasis. The endoscope was then advanced to the pylorus and the first and second portion of the duodenum, which appeared normal with no ulcerations or any distal obstructions. The endoscope was then slowly withdrawn while taking a second look and suctioning of residual air with no additional findings. The patient tolerated the procedure well. We will recommend continued medical management with the necessary lifestyle and dietary accommodation including small and more frequent meals, avoiding to eating at night as well as head elevation while lying supine. She also needs to avoid caffeinated beverages, spicy, greasy and acidic foods. Due to her history of the Baxter's esophagus and low-grade dysplasia, we will recommend close monitoring with followup EGDs every 3 years. If a change were to occur on pathology where high-grade dysplasia were identified, we would then refer her to a bad credit collector specialty, which does do endoscopic mucosectomy versus an ablation therapy. Job ID: [id number] DocumentID: [id number] Dictated Date: 02/07/2022 12:33:47 Flight Control Specialist Date: 02/07/2022 22:07:28 Dictated By: HERMAN CHICAS MD
== END 2022-02-07 13:05 | disposition home or self-care (01) ==
LOC: ENDO 10:50
PROVIDERS: ATTEND Surgery
DX: K21.00 Gastro-esophageal reflux disease with esophagitis, without bleeding (principal); K44.9 Diaphragmatic hernia without obstruction or gangrene; K29.70 Gastritis, unspecified, without bleeding; Z79.899 Other long term (current) drug therapy; E66.9 Obesity, unspecified; Z68.35 Body mass index [BMI] 35.0-35.9, adult